=== PATIENT | male | born 1990 | race Caucasian/White ===

== ENCOUNTER 2017-07-24 15:05 | Emergency (ER) | payer MEDICAID ==
[~2017-07-24] VITALS: Ht 182.9 cm; Wt 99.8 kg
[2017-07-24 15:05] VITALS: BP 132/96
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
--- NOTE | 2017-07-24 15:45 | NUR ---
Patient appears to be resting comfortably in bed. Vital Signs within normal limits. Respirations even and unlabored.
[2017-07-24 16:06] LABS: BASOPHILS # (AUTO) 0.3 K/uL (0.00-0.22); EOSINOPHILS # (AUTO) 0.2 K/uL (0-0.4); HEMATOCRIT 45.9 % (36-52); HEMOGLOBIN 15.4 g/dL (12.0-18.0); MEAN CORPUSCULAR HEMOGLOBIN 33 pg (27-31); MEAN CORPUSCULAR HGB CONC 34 g/dL (33-37); MEAN CORPUSCULAR VOLUME 99 fL (80-94); MONOCYTES # (AUTO) 0.4 K/uL (0.8-1.0); NEUTROPHILS # (AUTO) 2.9 K/uL (1.8-7.7); PLATELET COUNT (AUTO) 223 K/uL (140-450); RED BLOOD CELL COUNT(AUTO) 4.64 MIL/uL (4.20-6.10); WHITE BLOOD COUNT (AUTO) 4.8 K/uL (4.8-10.8)
[2017-07-24 16:10] LABS: APPEARANCE,URINE CLEAR (CLEAR); BILIRUBIN,URINE NEGATIVE (NEGATIVE); BLOOD, URINE NEGATIVE (NEGATIVE); COLOR,URINE YELLOW (YELLOW); LEUKOCYTE ESTERASE ,URINE NEGATIVE (NEGATIVE); NITRITE, URINE NEGATIVE (NEGATIVE); UGLUCOSE NEGATIVE (NEGATIVE)
[2017-07-24 16:12] LABS: ANION GAP 12.8 (8-16); POTASSIUM 3.8 mmol/L (3.5-5.1)
[2017-07-24 16:13] LABS: BARBITURATE, URINE NEG. ng/ml (NEG <=200); BENZODIAZEPINE, URINE POS. ng/mL (NEG <=200); CANNABINOID, URINE POS. ng/mL (NEG <=50); COCAINE, URINE POS. ng/mL (NEG <=300); OPIATE, URINE NEG. ng/mL (NEG <=2000); PHENCYCLIDINE SCREEN,URINE NEG. ng/mL (NEG <=25)
--- NOTE | 2017-07-24 16:15 | NUR ---
Patient appears to be resting comfortably in bed. Vital Signs within normal limits. Respirations even and unlabored.
[2017-07-24 16:18] LABS: ALBUMIN 3.9 g/dL (3.4-5.0)
--- NOTE | 2017-07-24 17:20 | NUR ---
at this time patient continues to rest quietly. mother at bedside.
--- NOTE | 2017-07-24 17:46 | NUR ---
Patient appears to be resting comfortably in bed. Vital Signs within normal limits. Respirations even and unlabored.
--- NOTE | 2017-07-24 18:30 | NUR ---
AT THIS TIME PATIENT DENIES SUICIDAL THOUGHTS. PATIENT CALM AND COOPERATIVE. NO S/S OF ACUTE DISTRESS NOTED.
--- NOTE | 2017-07-24 19:10 | NUR ---
Patient appears to be resting comfortably in bed. Vital Signs within normal limits. Respirations even and unlabored.
--- NOTE | 2017-07-24 19:36 | NUR ---
DR. DÍAZ EVALUATING PATIENT AT BEDSIDE.
--- NOTE | 2017-07-24 20:30 | NUR ---
PT SEEN BY DR. DÍAZ AND RELEASED FROM 5150 HOLD. PLEASE SEE WRITTEN PROGRESS NOTE
--- NOTE | 2017-07-24 20:35 | NUR ---
Patient discharged with v/s stable. Written and verbal after care instructions given and explained. Patient verbalized understanding. Ambulatory with steady gait. All questions addressed prior to discharge. Advised to follow up with PMD.
[2017-07-24 22:26] VITALS: BP 133/73
== END 2017-07-24 20:35 | disposition home or self-care (01) ==
LOC: MED 15:05
DX: R45.851 Suicidal ideations (principal); Z88.2 Allergy status to sulfonamides
CPT/HCPCS: 36415; 80053; 80305; 81003; 85025; 99285; G0482; 99284

== ENCOUNTER 2022-09-22 08:51 | Emergency (ER) | payer MEDICAID, OTHER ==
[~2022-09-22] VITALS: Ht 182.9 cm; Wt 83.0 kg
[2022-09-22 08:56] VITALS: BP 112/58
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
--- NOTE | 2022-09-22 09:59 | NUR ---
PA SMYTH EVAL IN TRIAGE
[2022-09-22] MEDS ORDERED: HYDROcodone/APAP 5/325 MG 1 TAB TAB PO ONE (10:05)
[2022-09-22] MEDS ORDERED: KETOROLAC 30 MG/ML VIAL IM ONE (10:05)
[2022-09-22 11:14] LABS: APPEARANCE,URINE CLEAR (CLEAR); BILIRUBIN,URINE 1+ (NEGATIVE); BLOOD, URINE TRACE-I (NEGATIVE); COLOR,URINE YELLOW (YELLOW); LEUKOCYTE ESTERASE ,URINE NEGATIVE (NEGATIVE); NITRITE, URINE NEGATIVE (NEGATIVE); PH,URINE 6.5 (5.0-9.0); UGLUCOSE TRACE (NEGATIVE)
[2022-09-22 11:24] LABS: RBC,URINE 0-5 /HPF (0-5)
[2022-09-22] MEDS ORDERED: IBUP-2213 PO (11:39)
[2022-09-22] MEDS ORDERED: LID5T TP (11:39)
[2022-09-22] MEDS ORDERED: ACET-8905 PO (11:39)
--- NOTE | 2022-09-22 11:48 | NUR ---
Patient discharged with v/s stable. Written and verbal after care instructions given and explained. Patient alert, oriented and verbalized understanding of instructions. Ambulatory with steady gait. All questions addressed prior to discharge. ID band removed. Patient advised to follow up with PMD. Rx of NORCO 5-325, MOTRIN, LIDOCAINE PATCH given. Patient educated on indication of medication including possible reaction and side effects. Opportunity to ask questions provided and answered.
[2022-09-22] MEDS ORDERED: HYDR-5191 PO (16:26)
[2022-09-23] MEDS ORDERED: CAPS1ADH5 TP (17:52)
== END 2022-09-22 11:48 | disposition home or self-care (01) ==
LOC: MED 08:51
DX: S39.012A Strain of muscle, fascia and tendon of lower back, initial encounter (principal); Z88.2 Allergy status to sulfonamides; Z79.899 Other long term (current) drug therapy; X58.XXXA Exposure to other specified factors, initial encounter; Y93.89 Activity, other specified; Y92.89 Other specified places as the place of occurrence of the external cause; Y99.8 Other external cause status
CPT/HCPCS: 81001; 96372; 99283; J1885

== ENCOUNTER 2022-09-23 15:38 | Emergency (ER) | payer OTHER ==
[~2022-09-23] VITALS: Ht 195.6 cm; Wt 79.4 kg
[~2022-09-23 15:38] MED LIST: ACET-8905 PO; HYDR-5191 PO; IBUP-2213 PO; LID5T TP
[2022-09-23 16:04] VITALS: BP 128/62
[2022-09-23] MEDS ORDERED: KETOROLAC 30 MG/ML VIAL IM ONE (16:25)
--- NOTE | 2022-09-23 16:53 | NUR ---
Chan gold in ED - 09/23/22 at 1653 by [email or web address] PT IN XRAY
--- NOTE | 2022-09-23 16:53 | NUR ---
PT IN US
[2022-09-23] MEDS ORDERED: KETOROLAC 30 MG/ML VIAL ONE (17:46)
[2022-09-23] MEDS ORDERED: CAPS1ADH5 TP (17:52)
--- NOTE | 2022-09-23 17:56 | NUR ---
KINA WRAP APPLIED TO R KNEE + CMS
--- NOTE | 2022-09-23 18:02 | NUR ---
Patient discharged with v/s stable. Written and verbal after care instructions given and explained. Patient alert, oriented and verbalized understanding of instructions. Ambulatory with steady gait. All questions addressed prior to discharge. ID band removed. Patient advised to follow up with PMD. Rx of haroon whipple given. Patient educated on indication of medication including possible reaction and side effects. Opportunity to ask questions provided and answered.
== END 2022-09-23 18:02 | disposition home or self-care (01) ==
LOC: MED 15:38
DX: M79.661 Pain in right lower leg (principal); R03.0 Elevated blood-pressure reading, without diagnosis of hypertension; Z79.899 Other long term (current) drug therapy
CPT/HCPCS: 73590; 93971; 96372; 99285; J1885

== ENCOUNTER 2022-09-25 11:48 | Emergency (ER) | payer OTHER ==
[~2022-09-25 11:48] MED LIST changes: +CAPS1ADH5 TP
--- NOTE | 2022-09-25 12:13 | NUR ---
LWBS PER REGISTRATION.
--- NOTE | 2022-09-25 12:25 | NUR ---
PT. NOT FOUND IN LOBBY. CALLED PT.S NAME OUTSIDE ER. CHECKED BATHROOMS. PT. NOT FOUND. PT. LEFT WITHOUT BEING SEEN. NOTIFIED.
--- NOTE | 2022-09-25 12:43 | NUR ---
PT. NOT FOUND IN LOBBY. CALLED PT.S NAME OUTSIDE ER. CHECKED BATHROOMS. PT. NOT FOUND. PT. LEFT WITHOUT BEING SEEN. NOTIFIED.
--- NOTE | 2022-09-25 13:22 | NUR ---
PT. NOT FOUND IN LOBBY. CALLED PT.S NAME OUTSIDE ER. CHECKED BATHROOMS. PT. NOT FOUND. PT. LEFT WITHOUT BEING SEEN. NOTIFIED.
== END 2022-09-25 12:13 | disposition left against medical advice (07) ==
LOC: MED 11:48
DX: M54.9 Dorsalgia, unspecified (principal); Z53.21 Procedure and treatment not carried out due to patient leaving prior to being seen by health care provider

== ENCOUNTER 2023-09-30 13:41 | Emergency (ER) | payer OTHER ==
[~2023-09-30] VITALS: Ht 182.9 cm; Wt 73.6 kg
[~2023-09-30 13:41] MED LIST changes: +HYDR-5071 PO; -HYDR-5191 PO
[2023-09-30 13:47] VITALS: BP 103/52; PULSE 98; RESP 18; TEMP 98.3; O2SAT 100
[2023-09-30 14:47] VITALS: BP 115/55; RESP 25; TEMP 98.3
[2023-09-30 14:53] VITALS: PULSE 90; O2SAT 90
[2023-09-30 15:23] LABS: BASOPHILS # (AUTO) 0.1 K/uL (0.00-0.22); BASOPHILS % (AUTO) 0.4 % (0.0-2.0); EOSINOPHILS # (AUTO) 0.1 K/uL (0-0.4); EOSINOPHILS % (AUTO) 0.7 % (0.0-4.0); HEMATOCRIT 30.1 % (36-52); HEMOGLOBIN 10.7 g/dL (12.0-18.0); LYMPHOCYTES # (AUTO) 0.9 K/uL (2.0-11.5); MEAN CORPUSCULAR HEMOGLOBIN 43 pg (27-31); MEAN CORPUSCULAR HGB CONC 36 g/dL (33-37); MEAN CORPUSCULAR VOLUME 121.3 fL (80-94); MONOCYTES # (AUTO) 1.3 K/uL (0.8-1.0); MONOCYTES % (AUTO) 10.1 % (1.7-9.3); NEUTROPHILS # (AUTO) 10.6 K/uL (1.8-7.7); NEUTROPHILS % (AUTO) 81.8 % (42.2-75.2); PLATELET COUNT (AUTO) 162 K/uL (140-450); RED BLOOD CELL COUNT(AUTO) 2.48 MIL/uL (4.20-6.10); RED CELL DISTRIBUTION WIDTH 14.6 % (11.6-13.7); WHITE BLOOD COUNT (AUTO) 12.9 K/uL (4.8-10.8)
[2023-09-30 15:32] LABS: ANION GAP 15.4 (8-16); CARBON DIOXIDE 17.3 mmol/L (21-32); CREATININE 0.7 mg/dL (0.6-1.3)
[2023-09-30 15:35] LABS: INR 1.88 (0.8-1.2); PARTIAL THROMBOPLASTIN TIME 37.6 secs (22-35.6); PROTHROMBIN TIME 19.1 secs (10.8-13.4)
[2023-09-30 15:42] LABS: ALBUMIN 2.1 g/dL (3.4-5.0); BILIRUBIN,DIRECT 17.7 mg/dL (0.0-0.3); TOTAL BILIRUBIN 21.8 mg/dL (0.0-1.0); TOTAL PROTEIN, SERUM 6.3 g/dL (6.4-8.2)
[2023-09-30 15:44] LABS: POTASSIUM 2.7 mmol/L (3.5-5.1)
[2023-09-30] MEDS: POTASSIUM CHLORIDE 10 MEQ TABER PO ONE (16:15)
[2023-09-30] MEDS: POTASSIUM CHLORIDE 20% 40 MEQ/15 ML UDC PO ONE (16:16)
[2023-09-30] MEDS ORDERED: KETOROLAC 30 MG/ML VIAL ONE (18:29)
== END 2023-09-30 16:22 | disposition left against medical advice (07) ==
LOC: MED 13:41
DX: K70.11 Alcoholic hepatitis with ascites (principal); E87.6 Hypokalemia; E87.1 Hypo-osmolality and hyponatremia; R79.1 Abnormal coagulation profile; K76.6 Portal hypertension; Z79.1 Long term (current) use of non-steroidal anti-inflammatories (NSAID); Z79.899 Other long term (current) drug therapy; Z88.2 Allergy status to sulfonamides
CPT/HCPCS: 36415; 71045; 74176; 80048; 80076; 82550; 83690; 83880; 85025; 85610; 85730; 87040; 93005; 99285; Q0092; J1885

== ENCOUNTER 2023-10-10 09:55 | Emergency (ER) | payer OTHER ==
[~2023-10-10] VITALS: Ht 182.9 cm; Wt 76.2 kg
[2023-10-10 10:04] VITALS: BP 96/50; PULSE 105; RESP 16; TEMP 97; O2SAT 99
[2023-10-10 10:25] VITALS: O2SAT 99
[2023-10-10 12:24] LABS: EOSINOPHILS # (AUTO) 0.1 K/uL (0-0.4); EOSINOPHILS % (AUTO) 0.8 % (0.0-4.0); HEMATOCRIT 24.3 % (36-52); HEMOGLOBIN 8.6 g/dL (12.0-18.0); LYMPHOCYTES % (AUTO) 6.3 % (20.5-51.1); MEAN CORPUSCULAR HEMOGLOBIN 43 pg (27-31); MEAN CORPUSCULAR HGB CONC 36 g/dL (33-37); MEAN CORPUSCULAR VOLUME 121.4 fL (80-94); MONOCYTES # (AUTO) 2.3 K/uL (0.8-1.0); MONOCYTES % (AUTO) 14.6 % (1.7-9.3); NEUTROPHILS # (AUTO) 12.6 K/uL (1.8-7.7); NEUTROPHILS % (AUTO) 78.3 % (42.2-75.2); PLATELET COUNT (AUTO) 156 K/uL (140-450); RED CELL DISTRIBUTION WIDTH 13.7 % (11.6-13.7); WHITE BLOOD COUNT (AUTO) 16.1 K/uL (4.8-10.8)
[2023-10-10 12:50] LABS: ANION GAP 16.8 (8-16); CALCIUM 8.4 mg/dL (8.5-10.1); CARBON DIOXIDE 19.5 mmol/L (21-32); CREATININE 1.7 mg/dL (0.6-1.3); POTASSIUM 4.3 mmol/L (3.5-5.1)
[2023-10-10 12:52] LABS: INR 2.66 (0.8-1.2); PROTHROMBIN TIME 26.7 secs (10.8-13.4)
[2023-10-10 12:54] LABS: ALBUMIN 1.7 g/dL (3.4-5.0); BILIRUBIN,DIRECT 11.3 mg/dL (0.0-0.3); TOTAL BILIRUBIN 15.1 mg/dL (0.0-1.0); TOTAL PROTEIN, SERUM 5.8 g/dL (6.4-8.2)
[2023-10-10 15:31] VITALS: BP 99/54; PULSE 98; RESP 16; TEMP 97; O2SAT 99
[2023-10-11] MEDS ORDERED: FOLI2000 PO (22:22)
[2023-10-11] MEDS ORDERED: THIA100T45 PO (22:22)
[2023-10-11] MEDS ORDERED: CHLO5CAP29 PO (22:22)
[2023-10-11] MEDS ORDERED: LACT-58 PO (22:22)
[2023-10-11] MEDS ORDERED: PRO5 PO (22:22)
== END 2023-10-10 15:35 | disposition left against medical advice (07) ==
LOC: MED 09:55
DX: K74.69 Other cirrhosis of liver (principal); D53.9 Nutritional anemia, unspecified; R79.1 Abnormal coagulation profile; E87.1 Hypo-osmolality and hyponatremia; N17.9 Acute kidney failure, unspecified; Z79.1 Long term (current) use of non-steroidal anti-inflammatories (NSAID); Z79.899 Other long term (current) drug therapy; Z88.2 Allergy status to sulfonamides
CPT/HCPCS: 36415; 80048; 80076; 83690; 85025; 85610; 99283